=== PATIENT | female | born 1970 | race Caucasian/White ===

== ENCOUNTER 2017-05-18 13:59 | Emergency (ER) | payer SELFPAY ==
[2017-05-18 17:45] LABS: Anion Gap 17 mmol/L; Carbon Dioxide 25 mmol/L (22-30); Chloride 99.7 mmol/L (98-107); Potassium 4.3 mmol/L (3.6-5.0); Sodium 137 mmol/L (137-145)
[2017-05-18 17:46] LABS: Alanine Aminotransferase 10 units/L (7-56); Albumin/Globulin Ratio 1.2 %; Alkaline Phosphatase 37 units/L (35-129); Blood Urea Nitrogen 9 mg/dL (7-17); Calcium 9.9 mg/dL (8.4-10.2); Glucose 79 mg/dL (65-100); Total Protein 7.4 g/dL (6.3-8.2)
[2017-05-18 18:10] LABS: Bilirubin,Urine NEG (Negative); Blood,Urine MOD (Negative); Ketones,Urine NEG (Negative); Leukocyte Esterase,Urine NEG (Negative); Nitrite,Urine NEG (Negative); Protein,Urine <15 mg/dL mg/dL (Negative); Urobilinogen,Urine < 2.0 mg/dL (<2.0)
[2017-05-18 18:20] LABS: Basophils % (Auto) 0.8 % (0.0-1.8); Eosinophils % (Auto) 2.2 % (0.0-4.3); Hematocrit 31.8 % (30.3-42.9); Hemoglobin 9.9 gm/dl (10.1-14.3); Mean Corpuscular HGB Conc 31 % (30-34); Mean Corpuscular Hemoglobin 24 pg (28-32); Mean Corpuscular Volume 77 fl (79-97); Platelet Count 380 K/mm3 (140-440); Red Blood Count 4.13 M/mm3 (3.65-5.03); Red Cell Distribution Width 18.9 % (13.2-15.2); White Blood Count 5.7 K/mm3 (4.5-11.0)
[2017-05-18] MEDS ORDERED: NORCO 5/325 ONE (20:32)
[2017-05-18] MEDS ORDERED: NORCO 5/325 PO ONE (20:47)
--- NOTE | 2017-05-18 22:17 | Emergency Department Report ---
HPI - General Chief Complaint: Headache Time Seen by Provider: 05/18/17 20:46 - HPI HPI: Room 38 The patient is a 46-year-old female presented with the chief complaint headache , early menses and weakness. The patient states about 4 days prior to arrival she developed a frontal headache that waxes and wanes. Patient does admit to some nausea and vomiting. Patient denies fever but admits to slight dysuria. 2 days ago the patient felt weak all over and fell with the loose consciousness. Patient currently complains of a headache and states it has decreased to a 5/10. Location: [see above] Duration: 4 days Quality: Headache Severity:5/10 Modifying factors: [see above] Context: [see above] Mode of transportation: [not driving] ED Past Medical Hx - Past Medical History Hx Hypertension: Yes Hx Diabetes: Yes Additional medical history: Anemia - Surgical History Additional Surgical History: Herniorrhaphy, , gastric sleeve - Family History Family history: no significant - Social History Smoking Status: Never Smoker Substance Use Type: None - Medications Home Medications: Home Medications Medication Instructions Recorded Confirmed Last Taken Type Butalb/Acetamin/Caff 50-325-40 2 tab PO Q8HR PRN #14 tablet 05/18/17 Unknown Rx [Fioricet] ED Review of Systems ROS: Stated complaint: HEADACHE Other details as noted in HPI Comment: All other systems reviewed and negative Constitutional: denies: chills, fever Eyes: denies: eye pain, eye discharge, vision change ENT: denies: ear pain, throat pain Respiratory: denies: cough, shortness of breath, wheezing Cardiovascular: denies: chest pain, palpitations Endocrine: no symptoms reported Gastrointestinal: nausea, vomiting Genitourinary: denies: urgency, dysuria, discharge Musculoskeletal: denies: back pain, joint swelling, arthralgia Skin: denies: rash, lesions Neurological: headache. denies: weakness, paresthesias Psychiatric: denies: anxiety, depression Hematological/Lymphatic: denies: easy bleeding, easy bruising Physical Exam - Physical Exam Vital Signs: Vital Signs 05/18/17 21:01 Respiratory 18 Rate Physical Exam: GENERAL: The patient is well-developed well-nourished female lying on stretcher not appearing to be in acute distress. [] HEENT: Normocephalic. Atraumatic. Extraocular motions are intact. Patient has moist mucous membranes. NECK: Supple. No meningitic signs are noted. Trachea midline CHEST/LUNGS: Clear to auscultation. There is no respiratory distress noted. HEART/CARDIOVASCULAR: Regular. There is no tachycardia. There is no gallop rub or murmur. ABDOMEN: Abdomen is soft, nontender. Patient has normal bowel sounds. There is no abdominal distention. SKIN: There is no rash. There is no edema. There is no diaphoresis. NEURO: The patient is awake, alert, and oriented. The patient is cooperative. The patient has no focal neurologic deficits. The patient has normal speech. Cranial nerves II through XII grossly intact, no drift. Normal sensation throughout MUSCULOSKELETAL: There is no evidence of acute injury. ED Course Vital Signs 05/18/17 21:01 Respiratory 18 Rate ED Medical Decision Making - Lab Data Result diagrams: 05/18/17 15:00 05/18/17 15:00 Laboratory Tests 05/18/17 05/18/17 05/18/17 15:00 15:00 15:00 WBC 5.7 RBC 4.13 Hgb 9.9 L Hct 31.8 MCV 77 L MCH 24 L MCHC 31 RDW 18.9 H Plt Count 380 Lymph % (Auto) 24.4 [place] % (Auto) 6.6 Eos % (Auto) 2.2 Baso % (Auto) 0.8 Lymph # 1.4 [place] # 0.4 Eos # 0.1 Baso # 0.0 Seg Neutrophils % 66.0 Seg Neutrophils # 3.7 Sodium 137 Potassium 4.3 Chloride 99.7 Carbon Dioxide 25 Anion Gap 17 BUN 9 Creatinine 0.5 L Estimated GFR > 60 BUN/Creatinine Ratio 18.00 Glucose 79 Calcium 9.9 Total Bilirubin 0.20 AST 17 ALT 10 Alkaline Phosphatase 37 Total Creatine Kinase Total Protein 7.4 Albumin 4.0 Albumin/Globulin Ratio 1.2 HCG, Qual Urine Color Straw Urine Turbidity Clear Urine pH 5.0 Ur Specific [place] 1.004 Urine Protein <15 mg/dl Urine Glucose (UA) Neg Urine Ketones Neg Urine Blood Mod Urine Nitrite Neg Urine Bilirubin Neg Urine Urobilinogen < 2.0 Ur Leukocyte Esterase Neg Urine WBC (Auto) 1.0 Urine RBC (Auto) 2.0 U Epithel Cells (Auto) 2.0 05/18/17 05/18/17 15:00 20:05 WBC RBC Hgb Hct MCV MCH MCHC RDW Plt Count Lymph % (Auto) [place] % (Auto) Eos % (Auto) Baso % (Auto) Lymph # [place] # Eos # Baso # Seg Neutrophils % Seg Neutrophils # Sodium Potassium Chloride Carbon Dioxide Anion Gap BUN Creatinine Estimated GFR BUN/Creatinine Ratio Glucose Calcium Total Bilirubin AST ALT Alkaline Phosphatase Total Creatine Kinase 136 H Total Protein Albumin Albumin/Globulin Ratio HCG, Qual Negative Urine Color Urine Turbidity Urine pH Ur Specific [place] Urine Protein Urine Glucose (UA) Urine Ketones Urine Blood Urine Nitrite Urine Bilirubin Urine Urobilinogen Ur Leukocyte Esterase Urine WBC (Auto) Urine RBC (Auto) U Epithel Cells (Auto) - Radiology Data Radiology results: image reviewed (CT head) interpreted by me: CT head (reviewed by myself)-no gross acute blood or masses visualized. - Medical Decision Making I discussed with the patient that we are unable to send her CT to radiology to be read officially at this time. Patient and family verbalized understanding Critical care attestation.: If time is entered above; I have spent that time in minutes in the direct care of this critically ill patient, excluding procedure time. ED Disposition Clinical Impression: Headache Disposition: DC-01 TO HOME OR SELFCARE Is pt being admited?: No Does the pt Need Aspirin: No Condition: Stable Instructions: Acute Headache (ED) Additional Instructions: Return to the emergency department immediately should you develop worsening symptoms, fever, inability to tolerate food or liquid or any other concerns. Prescriptions: Butalb/Acetamin/Caff 50-325-40 [Fioricet] 2 tab PO Q8HR PRN #14 tablet PRN Reason: Headache Referrals: ASHISH MAS MD [Staff Physician] - 3-5 Days (Dr. Harris is a primary physician. Please follow up with him to be established as a patient) CHRISTOS DURAN MD [Staff Physician] - [facility] (Dr. Duran is a neurologist. Please follow up with him for further evaluation) Time of Disposition: 23:27
--- NOTE | 2017-05-19 00:19 | Cat Scan Report ---
FINAL REPORT PROCEDURE: CT HEAD WO CONTRAST TECHNIQUE: Computerized tomography of the head was performed without contrast material. HISTORY: hyn h/a COMPARISON: No prior studies are available for comparison. FINDINGS: Skull and scalp: Normal. Paranasal sinuses: Mild opacification of the ethmoid sinuses. Ventricles and subarachnoid spaces: Normal. Cerebrum: No evidence of hemorrhage, acute infarction or mass . Cerebellum and brainstem: No evidence of hemorrhage, acute infarction or mass. Vasculature: Normal. Comments: None. IMPRESSION: There is no evidence of an acute intracranial process.
== END 2017-05-19 00:05 | disposition home or self-care (01) ==
LOC: ED 13:59
DX: R51 Headache (principal); I10 Essential (primary) hypertension; E11.9 Type 2 diabetes mellitus without complications
CPT/HCPCS: 36415; 70450; 80053; 81001; 82550; 84703; 85025

== ENCOUNTER 2019-10-28 13:02 | Outpatient (CLI) | payer OTHER ==
--- NOTE | 2019-10-28 13:58 | XRay Report ---
XR spine cervical 4-5V INDICATION / CLINICAL INFORMATION: PAIN IN RIGHT SHOULDER. COMPARISON: None available. FINDINGS: BONES/JOINT(S): No vertebral fracture. No significant degenerative changes. No neural foraminal narro wing and oblique projections. SOFT TISSUES: No significant soft tissue abnormality. ADDITIONAL FINDINGS: None. Signer Name: Elliott Robins MD Signed: 10/28/2019 1:53 PM Workstation Name: [id number]
== END 2019-10-28 13:03 | disposition home or self-care (01) ==
LOC: XRAY 13:02
PROVIDERS: ATTEND Orthopaedic Surgery
DX: M25.511 Pain in right shoulder (principal)
CPT/HCPCS: 72050